=== PATIENT | male | born 1985 | race African-American/Black ===

== ENCOUNTER 2019-10-28 06:09 | Emergency (ER) | payer OTHER ==
[2019-10-28 07:07] VITALS: BP 145/95; PULSE 114; TEMP 98.8; BMI 36.5
[2019-10-28] MEDS ORDERED: KETOROLAC TROMETHAMINE 30 MG/1 ML VIAL IM ONE (08:02)
[2019-10-28] MEDS ORDERED: LIDOCAINE HCL 2% JELLY (30 ML/TUBE) TP ONE (08:18)
[2019-10-28] MEDS ORDERED: LIDOCAINE HCL 2% JELLY (5 ML/TUBE) ONE (08:22)
[2019-10-28] MEDS ORDERED: KETOROLAC TROMETHAMINE 30 MG/1 ML VIAL ONE (08:23)
== END 2019-10-28 08:40 | disposition home or self-care (01) ==
LOC: JER 06:09
PROC: 3E023GC Introduction of Other Therapeutic Substance into Muscle, Percutaneous Approach (ICD-10-PCS; principal; 2019-10-28)
DX: K64.9 Unspecified hemorrhoids (principal)
CPT/HCPCS: 96372; 99282-25